=== PATIENT | female | born 1970 | race Caucasian/White ===

== ENCOUNTER 2016-11-26 10:08 | Emergency (ER) | payer OTHER ==
[2016-11-26 10:18] VITALS: BP 123/63; PULSE 90; RESP 20; TEMP 98.5
--- NOTE | 2016-11-26 11:01 | ED ---
General Adult HPI - General Chief complaint: Extremity Injury, Lower Stated complaint: Fall, [facility] Time Seen by Provider: 11/26/16 10:20 Source: patient, RN notes reviewed Mode of arrival: ambulatory Limitations: no limitations - History of Present Illness Initial comments: This is a 38-year-old female presents emergency Department complaining of right ankle pain. Patient states she slipped into a hole at work and twisted her ankle. Patient states she hurts On the lateral aspect of her right ankle. Patient states the area then swelled and it makes it difficult to put any pressure on the ankle. Patient denies any proximal leg pain patient states she did hit her knee on the side of a hole in his little bit of a superficial abrasion but there is no significant knee pain. Patient has full range of motion of the knee. Patient denies any hip pain patient denies any other injury at this time - Related Data Home Medications Medication Instructions Recorded Confirmed Aspirin/Acetaminophen/Caffeine 2 tab PO DAILY PRN 11/26/16 11/26/16 [Excedrin Migraine Caplet] Previous Rx's Medication Instructions Recorded Ibuprofen [Motrin] 600 mg PO Q6HR PRN #20 tab 11/26/16 Allergies Allergy/AdvReac Type Severity Reaction Status Date / Time magnesium Allergy Unknown Verified 11/26/16 10:41 Review of Systems ROS Statement: Those systems with pertinent positive or pertinent negative responses have been documented in the HPI. ROS Other: All systems not noted in ROS Statement are negative. Past Medical History Additional Past Medical History / Comment(s): migraines History of Any Multi-Drug Resistant Organisms: None Reported Past Surgical History: Orthopedic Surgery Past Psychological History: No Psychological Hx Reported Smoking Status: Current every day smoker Past Alcohol Use History: None Reported Past Drug Use History: None Reported General Exam - General Exam Comments Initial Comments: GENERAL Patient is well-developed and well-nourished. Patient is in mild distress. EYES Patient's pupils are equal and round. Extraocular motion is intact SKIN Unremarkable NEURO The patient is alert and oriented 3 PYSCH Patient has normal interpersonal interactions. MUSCULOSKELETAL There is a superficial abrasion to the knee but the knee has no laxity and no area of significant tenderness. The ankle is swollen on the lateral malleolus and is very tender to palpation. The foot has no tenderness. Limitations: no limitations Course Vital Signs 11/26/16 10:16 Temperature 98.5 F Pulse Rate 90 Respiratory 20 Rate Blood Pressure 123/63 O2 Sat by Pulse 99 Oximetry Procedures - Orthopedic Splinting/Casting Injury #1 Side: right Lower Extremity Injury Location: ankle Lower Extremity Immobilizer: posterior splint (Short leg) Medical Decision Making - Medical Decision Making Patient has a distal fibula fracture Disposition Clinical Impression: Fracture of distal fibula Disposition: HOME SELF-CARE Instructions: Ankle Fracture (ED) Additional Instructions: Patient should follow-up with orthopedic surgery as soon as possible. Prescriptions: Ibuprofen [Motrin] 600 mg PO Q6HR PRN #20 tab PRN Reason: For pain Referrals: None,Stated [Primary Care Provider] - 1-2 days Time of Disposition: 11:18
--- NOTE | 2016-11-26 11:17 | XR ---
EXAMINATION TYPE: XR ankle complete RT DATE OF EXAM: 11/26/2016 11:11 AM COMPARISON: NONE HISTORY: Pain TECHNIQUE: Frontal, lateral and oblique images of the right ankle are obtained. COMPARISON: None. FINDINGS: There is avulsion fracture arising from the tip of the lateral malleolus. Mild soft tissue edema is seen. No additional fractures noted. Ankle mortise is intact. The joint spaces appear withi n normal limits. The overlying soft tissue appears unremarkable. IMPRESSION: Lateral malleolar tip avulsion fracture.
== END 2016-11-26 11:45 | disposition home or self-care (01) ==
LOC: EC 10:08
DX: S82.61XA Displaced fracture of lateral malleolus of right fibula, initial encounter for closed fracture (principal); S80.211A Abrasion, right knee, initial encounter; F17.200 Nicotine dependence, unspecified, uncomplicated; Z88.8 Allergy status to other drugs, medicaments and biological substances; Z98.890 Other specified postprocedural states; W17.2XXA Fall into hole, initial encounter; Y92.69 Other specified industrial and construction area as the place of occurrence of the external cause; Y99.0 Civilian activity done for income or pay
CPT/HCPCS: 29515; 99283

== ENCOUNTER → 2017-05-15 | Outpatient (CLI) | payer OTHER | END | disposition home or self-care (01) | LOC: LABWHC1 17:18 | PROVIDERS: ATTEND Orthopaedic Surgery | DX: E55.9 Vitamin D deficiency, unspecified (principal) | CPT/HCPCS: 36415; 82306 ==

== ENCOUNTER → 2017-06-04 | Outpatient (CLI) | payer OTHER ==
--- NOTE | 2017-06-04 11:22 | BD ---
EXAMINATION TYPE: MG DEXA axial skeleton. DATE OF EXAM: 06/04/2017 COMPARISON: NONE CLINICAL HISTORY: 47-year-old female Z78.0 POST MENOPAUSE W/O HRT Height: 63 Weight: 209 FRAX RISK QUESTIONS: Alcohol (3 or more units per day): NO Family History (Parent hip fracture): OSTEOPOROSIS HX BUT NO FX Glucocorticoids (More than 3mos): NO (Ex: prednisone, prednisolone, methylprednisolone, dexamethasone, and hydrocortisone). History of Fracture in Adulthood: AT AGE 46 ...BROKEN RT FOOT Secondary Osteoporosis: NO 1. Type 1 Diabetes: NO 2. Hyperthyroidism: NO 3. Menopause before 45: UNKNOWN 4. Malnutrition: NO 5. Chronic liver disease: NO Rheumatoid Arthritis: NO Current Tobacco Use: YES, 1/2 PAC DAILY RISK FACTORS HISTORY OF: BROKEN RT ANKLE AT AGE 46 Family History of Osteoporosis: YES, HER MATERNAL AUNT AND MATERNAL GRANDMOTHER, NO HIP FXS Active: NOT RIGHT NOW Diet low in dairy products/other sources of calcium: YES, LACTOSE INTOLERANT. Postmenopausal woman: NA....DEPO SHOTS FOR 22 YRS Take estrogen and/or progesterone medications: DEPO SHOTS FOR 22 YRS How lon YRS Hyperparathyroidism: NO Adrenal Insufficiency: NO MEDICATIONS: Additional Medications: NONE TO NOTE Additional History: NONE TO NOTE EXAM MEASUREMENTS: Bone mineral densitometry was performed using the VOSS System. Bone mineral density as measured about the Lumbar spine is: ----- L1-L4(G/cm2): 1.049 T Score Values are as follows: ----- L1: -0.9 ----- L2: -0.9 ----- L3: -1.4 ----- L4: -1.2 ----- L1-L4: -1.1 Bone mineral density THIS IS HER FIRST BONE DENSITY SCAN.....BASELINE STUDY Bone mineral density about the R hip (g/cm2): 0.930 Bone mineral density about the L hip (g/cm2): 1.003 T Score values are as follows: -----R Neck: -1.5 -----L Neck: -1.0 -----R Total: -0.6 -----L Total: 0.0 Bone mineral density BASELINE STUDY FRAX%'S: THERE IS A 7.5% CHANCE FOR A MAJOR OSTEOPOROTIC FX AND A 1.1% FOR HIP FX....PROBABILITY O F FX IN 10 YRS TIME IMPRESSION: As the patient is less than 50 years old, Z score values are utilized. Based on Z score values, there is normal bone mineral density. However, note that T score values would qualify the patient as osteopenic which would place the patie nt at slight increased risk for fracture and in which case, therapy may be considered. Rescreen in 2-5 years NOTE: T-SCORE=SD OF THE YOUNG ADULT MEAN.
== END | disposition home or self-care (01) ==
LOC: RADBDWWP 08:36
PROVIDERS: ATTEND Internal Medicine
DX: Z78.0 Asymptomatic menopausal state (principal); Z88.8 Allergy status to other drugs, medicaments and biological substances
CPT/HCPCS: 77080

== ENCOUNTER → 2017-10-26 | Outpatient (CLI) | payer OTHER ==
--- NOTE | 2017-10-26 17:34 | XR ---
EXAMINATION TYPE: XR lumbar spine 2 or 3V DATE OF EXAM: 10/26/2017 COMPARISON: NONE HISTORY: Pain TECHNIQUE: 3 views FINDINGS: Vertebra have normal alignment. Disc spaces are fairly well-maintained. There is mild spurr ing at L4-5. Posterior elements are intact. Sacroiliac joints appear normal. There is possible 8 mm c alculus in the lower pole right kidney. There is possible small calculi in the lower pole left kidney . IMPRESSION: No acute abnormality of the lumbar spine. No fracture.
--- NOTE | 2017-10-26 17:46 | US ---
EXAMINATION TYPE: US venous doppler duplex LE LT DATE OF EXAM: 10/26/2017 4:49 PM COMPARISON: NONE CLINICAL HISTORY: M79.605 Left leg pain. SIDE PERFORMED: Left TECHNIQUE: The lower extremity deep venous system is examined utilizing real time linear array sonog gregory with graded compression, doppler sonography and color-flow sonography. VESSELS IMAGED: External Iliac Vein (EIV) Common Femoral Vein Deep Femoral Vein Greater Saphenous Vein * Femoral Vein Popliteal Vein Small Saphenous Vein * Proximal Calf Veins (* superficial vessels) Left Leg: Negative for DVT IMPRESSION: Normal exam. No evidence of deep venous thrombosis in the left leg.
== END | disposition home or self-care (01) ==
LOC: RADUSWWP 16:13
PROVIDERS: ATTEND Family Medicine
DX: M79.605 Pain in left leg (principal); M54.17 Radiculopathy, lumbosacral region
CPT/HCPCS: 72100

== ENCOUNTER → 2017-12-18 | Outpatient (CLI) | payer OTHER ==
--- NOTE | 2017-12-18 11:03 | XR ---
EXAMINATION TYPE: XR ankle complete LT, XR foot complete LT DATE OF EXAM: 12/18/2017 CLINICAL HISTORY: Twisting injury with pain. TECHNIQUE: Frontal, lateral and oblique images of the left ankle and foot are obtained. COMPARISON: None. FINDINGS: There is no acute fracture/dislocation evident in the left ankle. The ankle mortise appea rs within normal limits. The overlying soft tissue appears unremarkable. There is no acute fracture or dislocation evident in the left foot. Some flexion in the toes is prese nt. Accessory ossicle near lateral base of cuboid bone is present. The joint spaces in the left foot are preserved. Overlying soft tissue is unremarkable. IMPRESSION: There is no acute fracture or dislocation in the left ankle or foot.
== END ==
LOC: RADXRMAIN 10:13
PROVIDERS: ATTEND Emergency Medicine
DX: S93.402A Sprain of unspecified ligament of left ankle, initial encounter (principal); S93.602A Unspecified sprain of left foot, initial encounter

== ENCOUNTER → 2017-12-25 | Outpatient (CLI) | payer OTHER ==
--- NOTE | 2017-12-25 10:14 | XR ---
EXAMINATION TYPE: XR ankle complete LT, XR foot complete LT DATE OF EXAM: 12/25/2017 CLINICAL HISTORY: Sprain injury one week ago with persistent pain. TECHNIQUE: Frontal, lateral and oblique images of the left ankle and foot are obtained. COMPARISON: Left ankle and foot x-ray from one week ago. FINDINGS: There is no acute fracture/dislocation evident in the left ankle. The ankle mortise appea rs within normal limits. There is interval improvement in soft tissue swelling over the lateral malle olus. There is no acute fracture or dislocation evident in the left foot. The joint spaces in the left merced t are preserved. Accessory ossicle near the cuboid bone is present. Overlying soft tissue is unremar kable. IMPRESSION: There is no acute fracture or dislocation in the left ankle or foot. Improved soft tissu e swelling over lateral malleolus.
== END | disposition home or self-care (01) ==
LOC: RADXRMAIN 09:33
PROVIDERS: ATTEND Emergency Medicine
DX: M79.89 Other specified soft tissue disorders (principal); S93.402D Sprain of unspecified ligament of left ankle, subsequent encounter; S93.602D Unspecified sprain of left foot, subsequent encounter

== ENCOUNTER → 2018-05-24 | Outpatient (CLI) | payer OTHER ==
--- NOTE | 2018-05-24 15:24 | US ---
EXAMINATION TYPE: US abdomen limited DATE OF EXAM: 05/24/2018 COMPARISON: NONE CLINICAL HISTORY: K43.9 Abdominal wall hernia. Intermittent left side pain x 1 year Left upper abdomen subcostal at patient's area of concern: appears wnl at this time No worrisome solid or cystic mass or abnormal fluid collection is seen on images saved. No obvious fa t or bowel containing hernia is noted. IMPRESSION: As above.
== END ==
LOC: RADUSMAIN 14:51
PROVIDERS: ATTEND Emergency Medicine
DX: K43.9 Ventral hernia without obstruction or gangrene (principal)
CPT/HCPCS: 76705

== ENCOUNTER → 2018-06-04 | Outpatient (CLI) | payer OTHER ==
--- NOTE | 2018-06-05 13:30 | CT ---
"EXAMINATION TYPE: CT abdomen pelvis w con DATE OF EXAM: 06/04/2018 HISTORY: LLQ pain CT DLP: 1460mGycm Automated Exposure Control for Dose Reduction was Utilized. CONTRAST: CT scan of the abdomen and pelvis is performed with IV Contrast, patient injected with 100 mL of Isov ue 300. COMPARISON: None. FINDINGS: LUNG BASES: There is minimal bibasilar subsegmental dependent atelectasis. LIVER/GB: Within the hepatic dome of the peripheral margin of segment 4A there is a solitary 1.2 cm h yperattenuated, likely arterial enhancing lesion. No appreciable background hepatocellular disease. L eft hepatic lobe is small in size. Portacaval lymph node is prominent measuring 1.0 cm. Gallbladder i s unremarkable without cholelithiasis. PANCREAS: No significant abnormality is seen. SPLEEN: No significant abnormality is seen. ADRENALS: No adrenal or nodular thickening. KIDNEYS: There are nonobstructing renal calculi bilaterally (two, 2 mm in the left lower pole that ar e best seen on coronal series 5 image 55 and 6 mm in the right lower pole as well as 2 mm in the righ t upper pole. BOWEL: A small amount of fat stranding is seen surrounding the sigmoid colon. On the coronal images a focal outpouching could relate to an epiploic appendage or small diverticulum. No perforation or ree rounding pericolonic abscess is identified. Remainder the colon and small bowel are unremarkable othe r than scattered colonic diverticula. Appendix is contrast-filled and within normal limits. UTERUS/ADNEXA: No gross abnormality seen. LYMPH NODES: No greater than 1cm abdominal or pelvic lymph nodes are appreciated. OSSEOUS STRUCTURES: There is an indeterminant 1.3 cm right iliac lesion. This is sclerotic. No other suspicious osseous lesions are seen. Very minimal degenerative changes of the spine are noted. OTHER: There is mild atherosclerosis of the abdominal aorta. IMPRESSION: 1. Mild fat stranding surrounding the sigmoid colon. Findings could represent epiploic appendicitis o r very focal mild uncomplicated acute diverticulitis. 2. Solitary hyperattenuated, likely arterial enhancing hepatic lesion. In a patient without backgroun d hepatocellular disease this most commonly represents a hemangioma. Full characterization with three -phase dynamic enhanced CT abdomen or MRI abdomen could be performed if clinically warranted. 3. Indeterminate right iliac lesion measuring 1.3 cm. This may simply represent a bone island, though bone scan could be performed if there is clinical suspicion. A Yellow level critical message alert has been initiated for Edy Stock MD via the [employer] | Critical Results System on 06/05/2018 1:27 PM. This message alert has been sent to Edy baxter MD via the preferences provided by the clinician for the receipt of Radiology Critical Findings. Aidan essage ID [id number]."
== END | disposition home or self-care (01) ==
LOC: RADCTMAIN 13:29
PROVIDERS: ATTEND Surgery
DX: R93.2 Abnormal findings on diagnostic imaging of liver and biliary tract (principal); R10.32 Left lower quadrant pain
CPT/HCPCS: 74177; Q9967

== ENCOUNTER → 2018-06-29 | Outpatient (CLI) | payer OTHER ==
--- NOTE | 2018-06-29 16:29 | XR ---
EXAMINATION TYPE: XR foot complete LT DATE OF EXAM: 06/29/2018 CLINICAL HISTORY: Bilateral calcaneal pain after injury 2 months ago and ankle sprain. TECHNIQUE: Frontal, lateral, and oblique images of the left foot are obtained. COMPARISON: None FINDINGS: There is no acute fracture/dislocation evident in the left foot. Interval degenerative ysabel nges of the first tarsometatarsal joint and distal interphalangeal joints are seen as joint space deo rowing and small marginal osteophytes.. The overlying soft tissue appears unremarkable. IMPRESSION: There is no acute fracture or dislocation in the left foot. Given persistent pain MRI co uld evaluate for ligamentous or tendinous injury..
== END | disposition home or self-care (01) ==
LOC: RADXRMAIN 13:43
PROVIDERS: ATTEND Family Medicine
DX: M79.672 Pain in left foot (principal)

== ENCOUNTER 2018-10-06 18:29 | Emergency (ER) | payer OTHER ==
[2018-10-06 18:47] VITALS: TEMP 98.6
[2018-10-06] MEDS ORDERED: ONDANSETRON 4 MG/2 ML VIAL IVP STA (19:00)
[2018-10-06] MEDS ORDERED: KETOROLAC 30 MG/ML 1 ML VIAL IVP STA (19:00)
[2018-10-06] MEDS ORDERED: SODIUM CHLORIDE 0.9% 1,000 ML IV STA (19:00)
[2018-10-06] MEDS ORDERED: ONDANSETRON 4 MG/2 ML VIAL IM STA (19:22)
[2018-10-06] MEDS ORDERED: KETOROLAC 30 MG/ML 1 ML VIAL IM STA (19:22)
--- NOTE | 2018-10-06 19:24 | ED ---
Abdominal Pain HPI - General Chief Complaint: Abdominal Pain Stated Complaint: kidney stones Source: patient Mode of arrival: ambulatory Limitations: no limitations - History of Present Illness Initial Comments: This is a 48-year-old female past medical history of nephrolithiasis presenting today for chief complaint of dysuria, urgency Frequency and right-sided flank pain x 1 day. Patient states this morning she woke up with the feeling of a urinary tract infection she describes this as a burning sensation with urgency and frequency. She states that throughout the day this was prominent symptom, as well as bladder pressure. Patient states later this afternoon she began experiencing right-sided low back/flank pain, she states this felt similar to when she had a kidney stone in the past. Patient states the pain fluctuates in intensity with the worst being greater than 10 out of 10. Patient states she had an episode of emesis, denies emesis and she decided to present to the emergency department for evaluation. Patient denies a fever, chills, night sweats, diarrhea, melena, hematochezia, previous abdominal surgeries, abdominal pain or cramping. Patient denies any chest pain, dyspnea, dyspnea on exertion, cough, headache dizziness, visual changes, numbness, tingling, back pain or any other symptoms upon review of systems. Upon arrival patient had episode of emesis appears uncomfortable. A pressure elevated upon arrival remainder of vital signs within Limits, patient is afebrile. - Related Data Home Medications Medication Instructions Recorded Confirmed Ibuprofen [Advil] 400 mg PO Q8HR 10/06/18 10/06/18 Previous Rx's Medication Instructions Recorded Cephalexin [Keflex] 500 mg PO Q6HR 5 Days #20 cap 10/06/18 Ketorolac [Toradol] 10 mg PO Q8HR PRN 7 Days #21 tab 10/06/18 Ondansetron [Zofran] 4 mg PO Q8HR PRN 7 Days #21 tab 10/06/18 Tamsulosin [Flomax] 0.4 mg PO DAILY 14 Days #14 cap 10/06/18 Allergies Allergy/AdvReac Type Severity Reaction Status Date / Time magnesium Allergy Unknown Verified 10/06/18 19:15 Review of Systems ROS Statement: Those systems with pertinent positive or pertinent negative responses have been documented in the HPI. ROS Other: All systems not noted in ROS Statement are negative. Past Medical History Additional Past Medical History / Comment(s): migraines, kidney stones History of Any Multi-Drug Resistant Organisms: None Reported Past Surgical History: Orthopedic Surgery Additional Past Surgical History / Comment(s): L hand Past Psychological History: No Psychological Hx Reported Smoking Status: Current every day smoker Past Alcohol Use History: None Reported Past Drug Use History: None Reported General Exam - General Exam Comments Initial Comments: General: The patient is awake and alert, in no distress, and does not appear acutely ill. Eye: Pupils are equal, round and reactive to light, extra-ocular movements are intact. No nystagmus. There is normal conjunctiva bilaterally. No signs of icterus. Ears, nose, mouth and throat: There are moist mucous membranes and no oral lesions. Neck: The neck is supple, there is no tenderness or JVD. Cardiovascular: There is a regular rate and rhythm. No murmur, rub or gallop is appreciated. Respiratory: Lungs are clear to auscultation, respirations are non-labored, breath sounds are equal. No wheezes, stridor, rales, or rhonchi. Gastrointestinal: No noted diaphoresis, jaundice, pallor, protecting postures or squirming. Symmetrical pigmentation of abdomen without signs of inflammation. Umbilicus mildline, inverted without swelling. No dilated veins. Abdomen contour obese, no noted abdominal distention. No visible masses. No peristalsis, aortic pulsations, or ventral hernia. Bowel sounds audible in all 4 quadrants, unremarkable. No tenderness to light or deep palpation of the abdomen, no rigidity or guarding. Liver edge, not palpable. Spleen edge, right and left kidney not palpable. Superior bladder margin non-tender. Special Testing: Negative [place], [place], McBurney, Andie, cutaneous hyperesthesia. Negative Heel Jar test/sravan sign. No CVA tenderness. Digital rectal exam deferred. Negative sweeney turners or cullens sign Musculoskeletal: Normal ROM, no tenderness. Strength 5/5. Sensation intact. Radial and DP pulses equal bilaterally 2+. Neurological: A&O x 3. CN II-XII intact, There are no obvious motor or sensory deficits. Coordination appears grossly intact. Speech is normal. Skin: Skin is warm and dry and no rashes or lesions are noted. Psychiatric: Cooperative, appropriate mood & affect, normal judgment. Limitations: no limitations Course Vital Signs 10/06/18 10/06/18 18:45 21:05 Temperature 98.6 F Pulse Rate 76 68 Respiratory 18 16 Rate Blood Pressure 160/96 140/86 O2 Sat by Pulse 100 98 Oximetry - Reevaluation(s) Reevaluation #1: Unable to get initial blood draw, changed IV push Zofran and Toradol for most likely renal colic to IM until IV line to be established. 10/06/18 19:23 Medical Decision Making - Medical Decision Making 28-year-old female past medical history of kidney stones presents today for chief complaint of right flank pain urgency frequency and dysuria. CT of the abdomen without contrast revealed multiple stones including a 5 mm stone at the UV junction, consistent with exam findings, and patient history, no overt signs of infected or septic stone. Patient has mildly elevated white blood cell count. Urine significant red blood cells, consistent with #1 ddx of nephrolithiasis. There is presence of white blood cells in urine, urine will be cultured. Patient will be treated with antibiotics given presence of stone. In addition to antibiotic regimen patient was started on Flomax and given strainer to bring stone to the urology appointment, I did recommend a follow-up with urologist Dr. Kim in the next 2-3 days, and primary in next 1-2 days. Given Toradol and Zofran for nausea and pain management. Return parameters were discussed at length in a detailed patient which included return for abdominal fever. Patient verbalizes understanding. Patient was discharged stable condition appearing well. Discussed the patient's history, exam findings , presentation, laboratory studies which were reviewed by attending provider with attending provider Dr. Adhikari, together we agreed upon discharge plan of care. Patient was discharged agreed with plan, denies questions at this time. - Lab Data Result diagrams: 10/06/18 19:34 10/06/18 19:34 Lab Results 10/06/18 10/06/18 10/06/18 Range/Units 19:34 19:34 19:34 WBC 13.1 H (3.8-10.6) k/uL RBC 4.46 (3.80-5.40) m/uL Hgb 13.7 (11.4-16.0) gm/dL Hct 40.1 (34.0-46.0) % MCV 90.0 (80.0-100.0) fL MCH 30.7 (25.0-35.0) pg MCHC 34.1 (31.0-37.0) g/dL RDW 12.5 (11.5-15.5) % Plt Count 338 (150-450) k/uL Neutrophils % 75 % Lymphocytes % 19 % Monocytes % 4 % Eosinophils % 2 % Basophils % 0 % Neutrophils # 9.8 H (1.3-7.7) k/uL Lymphocytes # 2.5 (1.0-4.8) k/uL Monocytes # 0.5 (0-1.0) k/uL Eosinophils # 0.2 (0-0.7) k/uL Basophils # 0.0 (0-0.2) k/uL Sodium 141 (137-145) mmol/L Potassium 4.1 (3.5-5.1) mmol/L Chloride 109 H (98-107) mmol/L Carbon Dioxide 24 (22-30) mmol/L Anion Gap 8 mmol/L BUN 18 H (7-17) mg/dL Creatinine 0.84 (0.52-1.04) mg/dL Est GFR (CKD-EPI)AfAm >90 (>60 ml/min/1.73 sqM) Est GFR (CKD-EPI)NonAf 81 (>60 ml/min/1.73 sqM) Glucose 110 H (74-99) mg/dL Calcium 9.8 (8.4-10.2) mg/dL Total Bilirubin 0.6 (0.2-1.3) mg/dL AST 17 (14-36) U/L ALT 23 (9-52) U/L Alkaline Phosphatase 92 (38-126) U/L Total Protein 7.0 (6.3-8.2) g/dL Albumin 4.2 (3.5-5.0) g/dL Amylase 49 (30-110) U/L Lipase 145 (23-300) U/L Urine Color Yellow Urine Appearance Turbid H (Clear) Urine pH 7.0 (5.0-8.0) Ur Specific [place] 1.014 (1.001-1.035) Urine Protein Negative (Negative) Urine Glucose (UA) Negative (Negative) Urine Ketones Negative (Negative) Urine Blood Moderate H (Negative) Urine Nitrite Negative (Negative) Urine Bilirubin Negative (Negative) Urine Urobilinogen <2.0 (<2.0) mg/dL Ur Leukocyte Esterase Moderate H (Negative) Urine RBC 55 H (0-5) /hpf Urine WBC 21 H (0-5) /hpf Ur Squamous Epith Cells 2 (0-4) /hpf Urine Bacteria Rare H (None) /hpf Hyaline Casts 5 H (0-2) /lpf Urine Mucus Few H (None) /hpf Urine Yeast (Budding) Many H (None) /hpf Disposition Clinical Impression: Renal calculus, right Disposition: HOME SELF-CARE Condition: Good Instructions (If sedation given, give patient instructions): Kidney Stones (ED) Additional Instructions: Please use medication as discussed. Please follow-up with urology in next 2-3 days as discussed and primary in next 1-2 days. Strain urine and bring stone to appointment. Please return to emergency room if the symptoms increase or worsen or for any other concerns, including development of . Prescriptions: Cephalexin [Keflex] 500 mg PO Q6HR 5 Days #20 cap Ketorolac [Toradol] 10 mg PO Q8HR PRN 7 Days #21 tab PRN Reason: Severe Pain Ondansetron [Zofran] 4 mg PO Q8HR PRN 7 Days #21 tab PRN Reason: Nausea Tamsulosin [Flomax] 0.4 mg PO DAILY 14 Days #14 cap Is patient prescribed a controlled substance at d/c from ED?: No Referrals: Cole Hobson DO [Primary Care Provider] - 1-2 days Sixto Castelan MD [STAFF PHYSICIAN] - 1-2 days Time of Disposition: 21:03
[2018-10-06 19:49] LABS: Basophils % (A) 0 %; Eosinophils # (A) 0.2 k/uL (0-0.7); Eosinophils % (A) 2 %; HCT 40.1 % (34.0-46.0); HGB 13.7 gm/dL (11.4-16.0); Lymphocytes # (A) 2.5 k/uL (1.0-4.8); Lymphocytes % (A) 19 %; MCH 30.7 pg (25.0-35.0); MCHC 34.1 g/dL (31.0-37.0); Mean Platelet Volume 6.4; Monocytes # (A) 0.5 k/uL (0-1.0); Monocytes % (A) 4 %; Neutrophils # (A) 9.8 k/uL (1.3-7.7); Neutrophils % (A) 75 %; Platelet Count 338 k/uL (150-450); RBC 4.46 m/uL (3.80-5.40); RDW 12.5 % (11.5-15.5); WBC 13.1 k/uL (3.8-10.6)
[2018-10-06 20:03] LABS: ALT 23 U/L (9-52); AST 17 U/L (14-36); Albumin 4.2 g/dL (3.5-5.0); Alkaline Phosphatase 92 U/L (38-126); Amylase 49 U/L (30-110); Anion Gap 8 mmol/L; Blood Urea Nitrogen 18 mg/dL (7-17); Calcium 9.8 mg/dL (8.4-10.2); Carbon Dioxide 24 mmol/L (22-30); Chloride 109 mmol/L (98-107); Glucose 110 mg/dL (74-99); Lipase 145 U/L (23-300); Potassium 4.1 mmol/L (3.5-5.1); Sodium 141 mmol/L (137-145); Total Bilirubin 0.6 mg/dL (0.2-1.3)
[2018-10-06 20:04] LABS: Appearance,Urine Turbid (Clear); Bacteria,Urine Rare /hpf; Bilirubin,Urine Negative (Negative); Blood,Urine Moderate (Negative); Budding Yeast,Urine Many /hpf; Color,Urine Yellow; Glucose,Urine (UA) Negative (Negative); Hyaline Casts,Urine 5 /lpf (0-2); Ketones,Urine Negative (Negative); Leukocyte Esterase,Urine Moderate (Negative); Mucus,Urine Few /hpf; Nitrite,Urine Negative (Negative); Protein,Urine Negative (Negative); RBC,Urine 55 /hpf (0-5); Specific Gravity,Urine 1.014 (1.001-1.035); Squamous Epithelial Cell,Urine 2 /hpf (0-4); Urobilinogen,Urine <2.0 mg/dL (<2.0); WBC,Urine 21 /hpf (0-5)
--- NOTE | 2018-10-06 20:29 | CT ---
EXAMINATION TYPE: CT abdomen pelvis wo con DATE OF EXAM: 10/06/2018 COMPARISON: 06/04/2018 HISTORY: RT side flank pain. Hx renal stones. CT DLP: 581.9 mGycm Automated exposure control for dose reduction was used. TECHNIQUE: Helical acquisition of images was performed from the lung bases through the pelvis. FINDINGS: Lung bases are clear. There is no pleural effusion. Stomach appears normal. Liver spleen pancreas gal lbladder appear normal. Bile ducts are not dilated. There is no adrenal mass. There is right-sided hydronephrosis and hydroureter. There is 5 mm calculus at the right ureterovesic al junction. There are numerous bilateral renal calculi. There are multiple calculi on the right side . There is no retroperitoneal adenopathy. There are numerous sigmoid diverticula. There is no evidence of diverticulitis. There is diverticulos is in the rest of the colon also. There is no mesenteric edema. There is no evidence of free air. There is no ascites. There is no ingu inal hernia. Urinary bladder distends smoothly. The appendix appears normal. The lumbar spine is inta ct. There is no compression fracture. Bony pelvis is intact. IMPRESSION: MULTIPLE BILATERAL RENAL CALCULI. OBSTRUCTING CALCULUS AT THE RIGHT URETEROVESICAL JUNCTION WITH HYDR ONEPHROSIS AND HYDROURETER. OBSTRUCTION IS NEW COMPARED TO OLD EXAM. NORMAL APPENDIX.
[2018-10-06 21:06] VITALS: BP 140/86; PULSE 68; RESP 16
== END 2018-10-06 21:15 | disposition home or self-care (01) ==
LOC: EC 18:29
DX: N20.0 Calculus of kidney (principal); D72.829 Elevated white blood cell count, unspecified; F17.200 Nicotine dependence, unspecified, uncomplicated; Z88.8 Allergy status to other drugs, medicaments and biological substances; Z79.1 Long term (current) use of non-steroidal anti-inflammatories (NSAID); Z53.8 Procedure and treatment not carried out for other reasons
CPT/HCPCS: 36415; 80053; 82150; 83690; 85025; 81001; 74176; 99284; 96360; 96372 ×2; J2405; J1885

== ENCOUNTER → 2018-10-25 | Outpatient (CLI) | payer OTHER ==
--- NOTE | 2018-10-25 17:02 | XR ---
Left knee 3 views. History pain. Comparison none. FINDINGS: I see no fracture nor dislocation. Joint spaces are normal. There is no sign of knee joint effusion. IMPRESSION: Negative left knee exam.
--- NOTE | 2018-10-25 17:09 | XR ---
Left foot 3 views. History pain. Comparison none. FINDINGS: Metatarsals are intact. I see no fracture nor dislocation. Joint spaces are fairly normal. There are no erosions. IMPRESSION: Negative left foot exam.
== END | disposition home or self-care (01) ==
LOC: RADXRMAIN 16:06
PROVIDERS: ATTEND Emergency Medicine
DX: S80.02XA Contusion of left knee, initial encounter (principal); M79.672 Pain in left foot

== ENCOUNTER → 2018-10-29 | Outpatient (CLI) | payer OTHER ==
--- NOTE | 2018-10-29 11:44 | US ---
EXAMINATION TYPE: US venous doppler duplex LE LT DATE OF EXAM: 10/29/2018 11:05 AM COMPARISON: 10/26/2017 CLINICAL HISTORY: S80.02XD Contusion of left knee, subsequent encoun. Pain (brenda horse) left leg. Post fall 10-25-18, bruising left thigh, left knee SIDE PERFORMED: left TECHNIQUE: The lower extremity deep venous system is examined utilizing real time linear array sonog gregory with graded compression, doppler sonography and color-flow sonography. VESSELS IMAGED: External Iliac Vein (EIV) Common Femoral Vein Deep Femoral Vein Greater Saphenous Vein * Femoral Vein Popliteal Vein Small Saphenous Vein * Proximal Calf Veins (* superficial vessels) Left Leg: No evidence of DVT IMPRESSION: 1. Left lower femoral ultrasound negative for deep venous thrombosis
== END ==
LOC: RADUSWWP 10:59
PROVIDERS: ATTEND Emergency Medicine
DX: S80.02XD Contusion of left knee, subsequent encounter (principal)

== ENCOUNTER 2019-09-14 09:50 | Emergency (ER) | payer OTHER ==
[2019-09-14 09:54] VITALS: TEMP 98
[2019-09-14] MEDS ORDERED: METOCLOPRAMIDE 5 MG/ML 2 ML VIAL IVP STA (10:14)
[2019-09-14] MEDS ORDERED: KETOROLAC 30 MG/ML 1 ML VIAL IVP STA (10:14)
[2019-09-14] MEDS ORDERED: ORPHENADRINE 30 MG/ML 2 ML VIAL IVP STA (10:14)
[2019-09-14] MEDS ORDERED: SODIUM CHLORIDE 0.9% 1,000 ML IV STA (10:14)
[2019-09-14] MEDS ORDERED: diphenhydrAMINE 50 MG/ML 1 ML VIAL IVP STA (10:14)
--- NOTE | 2019-09-14 10:20 | ED ---
Headache HPI - General Chief Complaint: Headache Stated Complaint: Head and neck ache Time Seen by Provider: 09/14/19 10:05 Source: RN notes reviewed, old records reviewed Mode of arrival: ambulatory Limitations: no limitations - History of Present Illness Initial Comments: Patient is a 49-year-old female who presents emergency department today with chief complaint of headache, mainly located over her left posterior neck, and to the occipital parietal scalp. Patient reports symptoms started on Thursday. She also stated that she's been having some body aches, no chills but did complain of some nausea. Patient states that she has no visual or hearing deficits. Patient states that the headache was sometimes worse bright light. She denies any specific fever. She did not take any Tylenol or Motrin today. She was seen at [facility] [employer], and was checked for influenza. This was negative. Patient reports no other symptoms at this time. - Related Data Home Medications Medication Instructions Recorded Confirmed Ibuprofen [Advil] 400 mg PO Q8HR 10/06/18 10/06/18 Previous Rx's Medication Instructions Recorded Cephalexin [Keflex] 500 mg PO Q6HR 5 Days #20 cap 10/06/18 Ketorolac [Toradol] 10 mg PO Q8HR PRN 7 Days #21 tab 10/06/18 Ondansetron [Zofran] 4 mg PO Q8HR PRN 7 Days #21 tab 10/06/18 Tamsulosin [Flomax] 0.4 mg PO DAILY 14 Days #14 cap 10/06/18 Cyclobenzaprine [Flexeril] 10 mg PO TID #9 tab 09/14/19 Allergies Allergy/AdvReac Type Severity Reaction Status Date / Time magnesium Allergy Unknown Verified 10/06/18 19:15 Review of Systems ROS Statement: Those systems with pertinent positive or pertinent negative responses have been documented in the HPI. ROS Other: All systems not noted in ROS Statement are negative. Past Medical History Additional Past Medical History / Comment(s): migraines, kidney stones History of Any Multi-Drug Resistant Organisms: None Reported Past Surgical History: Orthopedic Surgery Additional Past Surgical History / Comment(s): L hand Past Psychological History: No Psychological Hx Reported Smoking Status: Current every day smoker Past Alcohol Use History: None Reported Past Drug Use History: None Reported General Exam - General Exam Comments Initial Comments: 49-year-old female. Alert and oriented 3. Patient appears in no distress. Limitations: no limitations General appearance: alert, in no apparent distress Head exam: Present: atraumatic, normocephalic, normal inspection Eye exam: Present: normal appearance, PERRL, EOMI. Absent: scleral icterus, conjunctival injection, periorbital swelling ENT exam: Present: normal exam, mucous membranes moist Neck exam: Present: normal inspection. Absent: tenderness, meningismus, lymphadenopathy Respiratory exam: Present: normal lung sounds bilaterally. Absent: respiratory distress, wheezes, rales, rhonchi, stridor Cardiovascular Exam: Present: regular rate, normal rhythm, normal heart sounds. Absent: systolic murmur, diastolic murmur, rubs, gallop, clicks GI/Abdominal exam: Present: soft, normal bowel sounds. Absent: distended, tenderness, guarding, rebound, rigid Extremities exam: Present: normal inspection, full ROM, normal capillary refill. Absent: tenderness, pedal edema, joint swelling, calf tenderness Back exam: Present: normal inspection Neurological exam: Present: alert, oriented X3, CN II-XII intact Psychiatric exam: Present: normal affect, normal mood Skin exam: Present: warm, dry, intact, normal color. Absent: rash Course Vital Signs 09/14/19 09/14/19 09:50 10:39 Temperature 98.0 F Pulse Rate 82 70 Respiratory 19 18 Rate Blood Pressure 147/103 145/100 O2 Sat by Pulse 100 100 Oximetry - Reevaluation(s) Reevaluation #1: 09/14/19 11:15 Patient is reevaluated and resting comfortably in bed. She states that her headache is diminished. She states she has been somewhat dizzy but most likely related to her medications. Medical Decision Making - Medical Decision Making 49-year-old female presents today for evaluation for concern for headache, some occipital nerve pain in posterior neck pain. She has some general aches the past week. At this time patient's labwork was reviewed rounds of unremarkable. CBC and chemistry panel showed no changes. Urinalysis did show some minor hematuria. Patient does not present for any concern for kidney stone, denies any CVA tenderness or flank pain at this time. Patient was informed that she should follow-up with her primary care doctor for repeat urine sample. Patient states that her headache is improved after migraine cocktail. She otherwise appears in no distress vital signs stable. I do believe patient's headache stemming from her neck and back for scalp seems to be related to likely a pinched nerve in her neck and she got some tenderness palpation over cervical spine or paraspinal muscles. Patient will be discharged at this time advised close follow-up with primary care doctor. discussed dc with short course of muscle relaxer. - Lab Data Result diagrams: 09/14/19 10:37 09/14/19 10:37 Lab Results 09/14/19 09/14/19 09/14/19 Range/Units 10:21 10:37 10:37 WBC 8.3 (3.8-10.6) k/uL RBC 4.76 (3.80-5.40) m/uL Hgb 15.3 (11.4-16.0) gm/dL Hct 43.9 (34.0-46.0) % MCV 92.3 (80.0-100.0) fL MCH 32.1 (25.0-35.0) pg MCHC 34.8 (31.0-37.0) g/dL RDW 12.2 (11.5-15.5) % Plt Count 299 (150-450) k/uL Neutrophils % 67 % Lymphocytes % 25 % Monocytes % 4 % Eosinophils % 2 % Basophils % 1 % Neutrophils # 5.5 (1.3-7.7) k/uL Lymphocytes # 2.1 (1.0-4.8) k/uL Monocytes # 0.4 (0-1.0) k/uL Eosinophils # 0.1 (0-0.7) k/uL Basophils # 0.1 (0-0.2) k/uL Sodium 141 (137-145) mmol/L Potassium 4.7 (3.5-5.1) mmol/L Chloride 108 H (98-107) mmol/L Carbon Dioxide 25 (22-30) mmol/L Anion Gap 8 mmol/L BUN 16 (7-17) mg/dL Creatinine 0.66 (0.52-1.04) mg/dL Est GFR (CKD-EPI)AfAm >90 (>60 ml/min/1.73 sqM) Est GFR (CKD-EPI)NonAf >90 (>60 ml/min/1.73 sqM) Glucose 86 (74-99) mg/dL Calcium 9.7 (8.4-10.2) mg/dL Total Bilirubin 1.0 (0.2-1.3) mg/dL AST 25 (14-36) U/L ALT 14 (4-34) U/L Alkaline Phosphatase 102 (38-126) U/L Total Protein 7.3 (6.3-8.2) g/dL Albumin 4.5 (3.5-5.0) g/dL Urine Color Yellow Urine Appearance Clear (Clear) Urine pH 6.5 (5.0-8.0) Ur Specific [place] 1.017 (1.001-1.035) Urine Protein Negative (Negative) Urine Glucose (UA) Negative (Negative) Urine Ketones Negative (Negative) Urine Blood Moderate H (Negative) Urine Nitrite Negative (Negative) Urine Bilirubin Negative (Negative) Urine Urobilinogen <2.0 (<2.0) mg/dL Ur Leukocyte Esterase Moderate H (Negative) Urine RBC 15 H (0-5) /hpf Urine WBC 5 (0-5) /hpf Ur Squamous Epith Cells 2 (0-4) /hpf Urine Mucus Rare H (None) /hpf Disposition Clinical Impression: Neck muscle spasm, Headache, Hematuria Disposition: HOME SELF-CARE Condition: Stable Instructions (If sedation given, give patient instructions): Acute Headache (ED) Additional Instructions: Please use medication as discussed. Please follow up with family doctor if symp toms have not improved over the next two days. Please return to the emergency room if your symptoms increase or worsen or for any other concerns. Prescriptions: Cyclobenzaprine [Flexeril] 10 mg PO TID #9 tab Is patient prescribed a controlled substance at d/c from ED?: No Referrals: Cole Hobson DO [Primary Care Provider] - 1-2 days Time of Disposition: 11:48
[2019-09-14 10:40] VITALS: RESP 18
[2019-09-14 11:09] LABS: Basophils # (A) 0.1 k/uL (0-0.2); Basophils % (A) 1 %; Eosinophils # (A) 0.1 k/uL (0-0.7); Eosinophils % (A) 2 %; HCT 43.9 % (34.0-46.0); HGB 15.3 gm/dL (11.4-16.0); Lymphocytes # (A) 2.1 k/uL (1.0-4.8); Lymphocytes % (A) 25 %; MCH 32.1 pg (25.0-35.0); MCHC 34.8 g/dL (31.0-37.0); MCV 92.3 fL (80.0-100.0); Mean Platelet Volume 8.4; Monocytes # (A) 0.4 k/uL (0-1.0); Monocytes % (A) 4 %; Neutrophils # (A) 5.5 k/uL (1.3-7.7); Neutrophils % (A) 67 %; Platelet Count 299 k/uL (150-450); RBC 4.76 m/uL (3.80-5.40); RDW 12.2 % (11.5-15.5); WBC 8.3 k/uL (3.8-10.6)
[2019-09-14 11:15] LABS: Appearance,Urine Clear (Clear); Bilirubin,Urine Negative (Negative); Blood,Urine Moderate (Negative); Color,Urine Yellow; Glucose,Urine (UA) Negative (Negative); Ketones,Urine Negative (Negative); Leukocyte Esterase,Urine Moderate (Negative); Mucus,Urine Rare /hpf; Nitrite,Urine Negative (Negative); PH, Urine 6.5 (5.0-8.0); Protein,Urine Negative (Negative); RBC,Urine 15 /hpf (0-5); Specific Gravity,Urine 1.017 (1.001-1.035); Squamous Epithelial Cell,Urine 2 /hpf (0-4); Urobilinogen,Urine <2.0 mg/dL (<2.0); WBC,Urine 5 /hpf (0-5)
[2019-09-14 11:23] LABS: ALT 14 U/L (4-34); AST 25 U/L (14-36); African American GFR (CKD) >90 (>60 ml/min/1.73 sqM); Albumin 4.5 g/dL (3.5-5.0); Alkaline Phosphatase 102 U/L (38-126); Anion Gap 8 mmol/L; Blood Urea Nitrogen 16 mg/dL (7-17); Calcium 9.7 mg/dL (8.4-10.2); Carbon Dioxide 25 mmol/L (22-30); Chloride 108 mmol/L (98-107); Glucose 86 mg/dL (74-99); Non-African American GFR(CKD) >90 (>60 ml/min/1.73 sqM); Potassium 4.7 mmol/L (3.5-5.1); Sodium 141 mmol/L (137-145); Total Protein 7.3 g/dL (6.3-8.2)
[2019-09-14 11:53] VITALS: BP 121/82; PULSE 82
== END 2019-09-14 11:51 | disposition home or self-care (01) ==
LOC: EC 09:50
DX: G43.909 Migraine, unspecified, not intractable, without status migrainosus (principal); R31.9 Hematuria, unspecified; M62.838 Other muscle spasm; F17.200 Nicotine dependence, unspecified, uncomplicated; Z91.048 Other nonmedicinal substance allergy status
CPT/HCPCS: 36415; 80053; 85025; 81001; 99284; 96374; 96375 ×3; 96361; J1200; J2360; J2765; J1885

== ENCOUNTER → 2020-02-02 | Outpatient (CLI) | payer OTHER ==
--- NOTE | 2020-02-02 12:29 | XR ---
EXAMINATION TYPE: XR Hip Complete RT DATE OF EXAM: 02/02/2020 CLINICAL HISTORY: Right hip pain TECHNIQUE: AP and frogleg views of the right hip are obtained. COMPARISON: None. FINDINGS: There is no acute fracture/dislocation evident in the right hip. The joint space in the r ight hip appears within normal limits. The overlying soft tissue appears unremarkable. Indeterminate 1.4 cm sclerotic focus of the right iliac bone just above the acetabulum. This was seen on the prior CT of 06/04/2018. IMPRESSION: There is no acute fracture or dislocation in the right hip.
--- NOTE | 2020-02-02 12:30 | XR ---
EXAMINATION TYPE: XR lumbar spine 2 or 3V DATE OF EXAM: 02/02/2020 COMPARISON: 10/26/2017 HISTORY: Lumbar pain TECHNIQUE: Three-view lumbar spine FINDINGS: There 5 lumbar-type vertebral bodies. The pedicles are intact. There is narrowing of the L5 -S1 disc height. Remaining disc heights are preserved. Vertebral body heights are preserved. There is a 0.9 x 0.5 cm inferior pole right renal stone. 0.2 cm calcification inferior pole left kidn ey. IMPRESSION: 1. Degenerative disc changes L5-S1. 2. Bilateral renal stones
== END | disposition home or self-care (01) ==
LOC: RADXRMAIN 12:02
PROVIDERS: ATTEND Emergency Medicine
DX: M51.37 Other intervertebral disc degeneration, lumbosacral region (principal); M25.551 Pain in right hip
CPT/HCPCS: 72100; 73502

== ENCOUNTER → 2020-03-06 | Outpatient (CLI) | payer BC ==
--- NOTE | 2020-03-06 15:04 | XR ---
EXAMINATION TYPE: XR KUB DATE OF EXAM: 03/06/2020 COMPARISON: None INDICATION: Bilateral nephrolithiasis TECHNIQUE: Single view abdomen frontal projection FINDINGS: There is a normal bowel gas pattern. Psoas margins are normal. No organomegaly is present. There is a 0.7 cm calcification overlying the expected inferior pole right kidney. There is a punctat e 0.3 cm calcification inferior pole left kidney IMPRESSION: 1. Bilateral renal stones.
== END | disposition home or self-care (01) ==
LOC: RADXRMAIN 12:13
PROVIDERS: ATTEND Nurse Practitioner Family
DX: N20.0 Calculus of kidney (principal)
CPT/HCPCS: 74018

== ENCOUNTER → 2020-03-09 | Outpatient (CLI) | payer OTHER ==
--- NOTE | 2020-03-09 14:52 | XR ---
EXAMINATION TYPE: XR cervical spine comp DATE OF EXAM: 03/09/2020 CLINICAL HISTORY: pain COMPARISON: NONE TECHNIQUE: Frontal, lateral, oblique, swimmers, and open mouth view of the cervical spine are obtaine d. FINDINGS: The cervical spine is visualized in its entirety from C1 thru the top of T1 level. It is s atisfactory in alignment without evidence of acute fracture or dislocation. The pre-vertebral soft t issue appears within normal limits. Moderate to severe multilevel degenerative disc disease and spond ylosis. The C1-C2 articulation is unremarkable on the open mouth view. The oblique images are within normal limits. IMPRESSION: No acute fracture or dislocation is seen in the cervical spine.ICD 10 NO FRACTURE, INITI AL EVALUATION
== END | disposition home or self-care (01) ==
LOC: RADXRMAIN 14:20
PROVIDERS: ATTEND Emergency Medicine
DX: M54.2 Cervicalgia (principal)
CPT/HCPCS: 72050

== ENCOUNTER → 2022-04-29 | Outpatient (CLI) | payer BC ==
--- NOTE | 2022-04-29 09:32 | XR ---
EXAMINATION TYPE: XR foot complete RT DATE OF EXAM: 04/29/2022 COMPARISON: NONE HISTORY: Pain TECHNIQUE: Three views are submitted. FINDINGS: The osseous structures are intact. There is no acute fracture or dislocation. Joint spaces are p reserved. IMPRESSION: 1. No acute fracture or dislocation. If symptoms persist, follow-up exam in 7 to 10 days could be ob tained.
== END | disposition home or self-care (01) ==
LOC: RADXRMAIN 08:53
PROVIDERS: ATTEND Nurse Practitioner Family
DX: M79.671 Pain in right foot (principal)

== ENCOUNTER 2023-01-03 22:39 | Emergency (ER) | payer BC ==
[2023-01-03 22:45] VITALS: BP 158/94; PULSE 80; RESP 16; TEMP 97.8
[2023-01-03] MEDS ORDERED: SULFAMETHOX-TMP 800-160MG 1 EACH TAB PO STA (23:24)
--- NOTE | 2023-01-03 23:27 | ED ---
General Adult HPI - General Chief complaint: Recheck/Abnormal Lab/Rx Stated complaint: Post-Op Complications Time Seen by Provider: 01/03/23 22:54 Source: patient Mode of arrival: ambulatory Limitations: no limitations - History of Present Illness Initial comments: This patient is a 52-year-old woman presenting to have evaluation of drainage from the posterior scalp. Patient indicates that she had a cyst removed approximately one week ago. She states she was told that the entire cyst was removed and that it was noninfected at this time. The patient has noted some drainage and she is describing purulent/bloody appearance. No fever or chills or any other systemic symptoms noted. Onset/Timin -: week(s) Location: head Radiation: non-radiation Quality: dull Consistency: constant Improves with: none Worsens with: other (Palpation) Associated Symptoms: denies other symptoms Treatments Prior to Arrival: none - Related Data Home Medications Medication Instructions Recorded Confirmed Ibuprofen [Advil] 400 mg PO Q8HR 10/06/18 10/06/18 Previous Rx's Medication Instructions Recorded Cephalexin [Keflex] 500 mg PO Q6HR 5 Days #20 cap 10/06/18 Ketorolac [Toradol] 10 mg PO Q8HR PRN 7 Days #21 tab 10/06/18 Ondansetron [Zofran] 4 mg PO Q8HR PRN 7 Days #21 tab 10/06/18 Tamsulosin [Flomax] 0.4 mg PO DAILY 14 Days #14 cap 10/06/18 Cyclobenzaprine [Flexeril] 10 mg PO TID #9 tab 09/14/19 Sulfamethox-Tmp 800-160Mg [Bactrim 1 each PO Q12HR #14 tab 01/03/23 Ds] Allergies Allergy/AdvReac Type Severity Reaction Status Date / Time magnesium Allergy Unknown Verified 10/06/18 19:15 Review of Systems ROS Statement: Those systems with pertinent positive or pertinent negative responses have been documented in the HPI. ROS Other: All systems not noted in ROS Statement are negative. Constitutional: Denies: fever, chills Cardiovascular: Denies: chest pain, palpitations Skin: Reports: as per HPI, lesions Past Medical History Additional Past Medical History / Comment(s): migraines, kidney stones History of Any Multi-Drug Resistant Organisms: None Reported Past Surgical History: Orthopedic Surgery Additional Past Surgical History / Comment(s): L hand Past Psychological History: No Psychological Hx Reported Past Alcohol Use History: None Reported Past Drug Use History: None Reported General Exam Limitations: no limitations General appearance: alert, in no apparent distress Head exam: Present: atraumatic, other (The patient does have approximately 1 cm diameter area of erythema with purulent drainage. Does appear to have been a sebaceous cyst that may have been removed that does appear infected) Neck exam: Present: normal inspection, full ROM. Absent: tenderness, meningismus Neurological exam: Present: alert Skin exam: Present: warm, dry, other (See above). Absent: rash Course Vital Signs 01/03/23 22:41 Temperature 97.8 F Pulse Rate 80 Respiratory 16 Rate Blood Pressure 158/94 O2 Sat by Pulse 98 Oximetry Medical Decision Making - Medical Decision Making Patient's 52-year-old woman presenting with what appears to be localized infection at site of cyst removal. Patient started antibiotics here and will continue course. Recommended to have follow-up in clinic. Discussed appropriate return parameters as well as the follow-up care. Was pt. sent in by a medical professional or institution (, PA, PROJECT DEVELOPMENT COORDINATOR, urgent care, hospital, or residential...) When possible be specific @ -[No] Did you speak to anyone other than the patient for history (EMS, parent, family, police, friend...)? What history was obtained from this source @ -[No] Did you review nursing and triage notes (agree or disagree)? Why? @ -[I reviewed and agree with nursing and triage notes] Were old charts reviewed (outside hosp., previous admission, EMS record, old EKG, old radiological studies, urgent care reports/EKG's, residential records)? Report findings @ -[No old charts were reviewed] Differential Diagnosis (chest pain, altered mental status, abdominal pain women, abdominal pain men, vaginal bleeding, weakness, fever, dyspnea, syncope, headache, dizziness, GI bleed, back pain, seizure, CVA, palpatations, mental health, musculoskeletal)? @ -[Differential diagnosis includes wound infection, kerion, sebaceous cyst, amongst other conditions EKG interpreted by me (3pts min.). @ -[ X-rays interpreted by me (1pt min.). @ -[None done] CT interpreted by me (1pt min.). @ -[None done] U/S interpreted by me (1pt. min.). @ -[None done] What testing was considered but not performed or refused? (CT, X-rays, U/S, labs)? Why? @ -[None] What meds were considered but not given or refused? Why? @ -[None] Did you discuss the management of the patient with other professionals (professionals i.e. , PA, PROJECT DEVELOPMENT COORDINATOR, lab, RT, psych nurse, social worker clinical, application packaging consultant, teacher, intelligence officer basic, case preparer and liner)? Give summary @ -[No] Was smoking cessation discussed for >3mins.? @ -[No] Was critical care preformed (if so, how long)? @ -[No] Were there social determinants of health that impacted care today? How? (Homelessness, low income, unemployed, alcoholism, drug addiction, transportation, low edu. Level, literacy, decrease access to med. care, [place] [facility], rehab)? @ -[No] Was there de-escalation of care discussed even if they declined (Discuss DNR or withdrawal of care, Hospice)? DNR status @ -[No] What co-morbidities impacted this encounter? (DM, HTN, Smoking, COPD, CAD, Cancer, CVA, ARF, Chemo, Hep., AIDS, mental health diagnosis, sleep apnea, morbid obesity)? @ -[None] Was patient admitted / discharged? Hospital course, mention meds given and route, prescriptions, significant lab abnormalities, going to OR and other pertinent info. @ -[Discharged Undiagnosed new problem with uncertain prognosis? @ -[No] Drug Therapy requiring intensive monitoring for toxicity (Heparin, Nitro, Insulin, Cardizem)? @ -[No] Were any procedures done? @ -[No] Diagnosis/symptom? @ -[Wound infection Acute, or Chronic, or Acute on Chronic? @ -[Acute Uncomplicated (without systemic symptoms) or Complicated (systemic symptoms)? @ -[Uncomplicated Side effects of treatment? @ -[No] Exacerbation, Progression, or Severe Exacerbation? @ -[No] Poses a threat to life or bodily function? How? (Chest pain, [place], [place], pneumonia, PE, COPD, DKA, ARF, appy, cholecystitis, CVA, Diverticulitis, Homicidal, Suicidal, threat to staff... and all critical care pts) @ -[No] Disposition Clinical Impression: Infected sebaceous cyst of skin Disposition: HOME SELF-CARE Condition: Good Instructions (If sedation given, give patient instructions): Wound Infection (ED) Prescriptions: Sulfamethox-Tmp 800-160Mg [Bactrim Ds] 1 each PO Q12HR #14 tab Is patient prescribed a controlled substance at d/c from ED?: No Referrals: Elisabeth Alberto NPC [Primary Care Provider] - 1-2 days Rosana Bowers MD [STAFF PHYSICIAN] - 1-2 days
== END 2023-01-03 23:38 | disposition home or self-care (01) ==
LOC: EC 22:39
DX: L08.9 Local infection of the skin and subcutaneous tissue, unspecified (principal); L72.3 Sebaceous cyst; Z88.8 Allergy status to other drugs, medicaments and biological substances
CPT/HCPCS: 99283